=== PATIENT | male | born 1935 | race Caucasian/White ===

== ENCOUNTER 2016-07-20 09:13 | Inpatient (IN) | payer OTHER ==
[~2016-07-20] VITALS: Ht 170.2 cm; Wt 94.8 kg
[~2016-07-20 09:13] MED LIST: ALBU8.5H8 INH; CARV12.548 PO; CLOP75TA2 PO; FLUT1DIS3 INH; GLIP10TA74 PO; LEVO125T8 PO; LIP10 PO; LISI40TA4 PO; METF1000 PO; SPIR25TA4 PO; SPIRIVA IH
--- NOTE | 2016-07-20 09:15 | NUR ---
Placed in room 2 . Placed on monitor technician, blood pressure machine and pulse oximeter. To gown for exam. Side rails up. Report given to Lei GARAY.
--- NOTE | 2016-07-20 09:19 | NUR ---
ER Dr. Austin at bedside examining patient.
[2016-07-20 09:20] VITALS: BP_SYST 153
--- NOTE | 2016-07-20 09:30 | NUR ---
Pt bib family c/o chill and lethargy upon awaking this AM. Pt's family reports sluggish motor skill, however pt was about complete ADL's. Pt h/o DM,HTN,Afib and CVA 2012 and R facial droop w/ mild residual deficits.
[2016-07-20 09:56] LABS: BASOPHILS # (AUTO) 0.1 K/uL (0.0-0.2); BASOPHILS % (AUTO) 0.4 % (0.0-2.0); EOSINOPHILS # (AUTO) 0.1 K/uL (0.0-0.4); EOSINOPHILS % (AUTO) 0.4 % (0.0-4.0); HEMATOCRIT 32.3 % (36-54); HEMOGLOBIN 10.5 g/dL (14.0-18.0); LYMPHOCYTES # (AUTO) 2.1 K/uL (1.0-5.5); LYMPHOCYTES % (AUTO) 12.2 % (20.5-51.5); MEAN CORPUSCULAR HEMOGLOBIN 31 pg (27-31); MEAN CORPUSCULAR HGB CONC 33 % (32-36); MEAN CORPUSCULAR VOLUME 96 fL (79.0-98.0); MONOCYTES # (AUTO) 1.4 K/uL (0.0-1.0); MONOCYTES % (AUTO) 8.2 % (1.7-9.3); NEUTROPHILS # (AUTO) 13.3 K/uL (1.8-7.7); NEUTROPHILS % (AUTO) 78.8 % (40.0-70.0); PLATELET COUNT (AUTO) 205 K/uL (130-430); RED BLOOD CELL COUNT(AUTO) 3.38 MIL/uL (4.2-6.2); RED CELL DISTRIBUTION WIDTH 13.1 % (9.0-15.0)
--- NOTE | 2016-07-20 10:15 | NUR ---
Pt denies pain or discomfort at this time.
[2016-07-20 10:19] LABS: ANION GAP 5 (5-15); CALCIUM 8.6 mg/dL (8.4-11.0); CHLORIDE 98 mmol/L (98-107); CREATININE 1.38 mg/dL (0.55-1.30); GLUCOSE 290 mg/dL (70-99); POTASSIUM 5.4 mmol/L (3.5-5.1); SODIUM SERUM 129 mmol/L (136-145); UREA NITROGEN, BLOOD 33 mg/dL (8-21)
[2016-07-20 10:21] LABS: INR 1.8 (0.80-1.20); PROTHROMBIN TIME 20.2 SECS (9.5-12.5)
[2016-07-20 10:23] LABS: ALANINE AMINOTRANSFERASE 23 U/L (12-78); ALBUMIN 3.5 g/dL (3.4-4.8); ASPARTATE AMINOTRANSFERASE 15 U/L (10-37); CHOLESTEROL 102 mg/dL (<200); HDL CHOLESTEROL 37 mg/dL (>45); LDL CHOLESTEROL 48 mg/dL (<100); TOTAL BILIRUBIN 1.3 mg/dL (0.0-1.0); TOTAL PROTEIN, SERUM 7.1 g/dL (6.4-8.3); TRIGLYCERIDES 96 mg/dL (30-150)
[2016-07-20] MEDS ORDERED: cefTRIAXone 1 GM IVPB PREMIX 50 ML IV ONE (11:30)
--- NOTE | 2016-07-20 11:30 | NUR ---
blood cultures done
[2016-07-20] MEDS ORDERED: GLIP10TA11 PO (11:46)
--- NOTE | 2016-07-20 11:47 | NUR ---
Medication reconciliation completed with information provided by family. Any prior medication reconciliation on file was reviewed and corrected.
[2016-07-20 12:21] LABS: BILIRUBIN,URINE NEGATIVE (NEGATIVE); CLARITY/URINE SL CLOUDY (CLEAR); COLOR,URINE YELLOW (YELLOW); GLUCOSE,URINE 1+ (NEGATIVE); KETONES,URINE NEGATIVE (NEGATIVE); LEUKOCYTE ESTERASE ,URINE 1+ (NEGATIVE); NITRITE, URINE POSITIVE (NEGATIVE); PH,URINE 5.5 (5.0-8.0); PROTEIN URINE NEGATIVE (NEGATIVE); UROBILINOGEN,URINE 0.2 (0.2-1.0)
[2016-07-20 12:25] LABS: BLOOD, URINE TRACE (NEGATIVE)
[2016-07-20 12:29] LABS: BACTERIA,URINE MANY /HPF (None Seen); RBC,URINE 0-3 /HPF (0-3); WBC,URINE 20-50 /HPF (0-3)
--- NOTE | 2016-07-20 12:45 | NUR ---
PT MEDICATED TOLERATED WELL.CONTIUNING TO MONITOR
[2016-07-20] MEDS ORDERED: NACL 0.9% 1,000 ML IV ONE ×2 (14:15→16:15)
--- NOTE | 2016-07-20 14:44 | NUR ---
ADMIT NOTE Received pt from ER to the floor with a diagnosis of sepsis. Admission process initiated. patient oriented to pain management, safety and call light-teach back done.
[2016-07-20 14:46] VITALS: BP_SYST 132
--- NOTE | 2016-07-20 14:50 | NUR ---
Patient will be admitted to care of . Admitted to TELEMETRY unit. Will go to room 135. Belongings list completed. Summary report printed. Report will be given at bedside.
[2016-07-20 15:20] VITALS: BP_SYST 148
--- NOTE | 2016-07-20 15:27 | NUR ---
OPENING NOTE RECEIVED REPORT AT BEDSIDE. 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 VITAL STABLE AT 2L O2 AND PT IS NOT REPORTING PAIN. SKIN ASSESSMENT: NO SACRAL WOUNDS, BUT THERE ARE SEVERAL BRUISES AND SMALL WOUNDS ON HIS LOWER ARMS BILATERALLY WHICH ARE BANDAGED . PT STATED THE WOUNDS ARE DUE TO SMALL SCRATCHES BUT THAT HIS COUMADIN THERAPY CAUSES HIM TO BLEED MORE THAN USUAL. PT EDUCTED CAREER DEVELOPMENT ENGINEER LIGHT AND ORIENTED TO ROOM. BED ALARM SET HE NEEDS ASSISTANCE AMBULATING
--- NOTE | 2016-07-20 17:38 | NUR ---
CONSULTATION CALLED REASON FOR CONSULT:INFECTOUS DISEASE WHO WAS NOTIFIED: ROWDY CHUN DR: [place] EPIC PROFESSIONAL NUMBER: [phone]
[2016-07-20] MEDS: PIPERACILLIN/TAZO 2.25G/DEX-IS 50 ML IV SCH ×2 (18:02→23:52)
--- NOTE | 2016-07-20 19:00 | NUR ---
CLOSING ROUND PT RESTING IN BED, STATED HE IS COMFORTABLE AND PAIN-FREE. PT'S IS AT BEDSIDE. VS STABLE, PT CLEAN, BED ALARM SET AND AT LOWEST POSITION. REPORT ENDORSED AT BEDSIDE
[2016-07-20 20:00] VITALS: BP_SYST 148
--- NOTE | 2016-07-20 20:00 | NUR ---
Initial PM Note Pt was received lying in bed fully awake, alert and oriented x3. No c/o pain or discomfort. Speech is clear and pt is able to make his needs known. Pt's is visiting at the bedside. Skin is warm and dry to touch. No signs or symptoms of hypoglycemia or hyperglycemia noted. panel monitor is showing SR. Fall precautions are in place. Pt was instructed to call for assistance as needed and pt verbalized understanding. Call light is with pt and bed alarm is on. Three side rails are up. Bed is in the lowest and locked positions. IVF is infusing well in LFA. Will continue to monitor pt.
[2016-07-20] MEDS ORDERED: ALBUTEROL SULFATE 0.083% 2.5 MG/3 ML VIAL.NEB INH PRN (20:15)
[2016-07-20 20:43] VITALS: BP_SYST 148
--- NOTE | 2016-07-20 20:45 | NUR ---
Incontinence Care Pt was incontinent of large amount of clear yellowish urine. Incontinence care given and partial linen change done.
[2016-07-20] MEDS: LACTOBACILLUS RHAMNOSUS GG 1 CAP CAPSULE PO SCH (21:15)
[2016-07-20] MEDS: CARVEDILOL 12.5 MG TABLET (COREG) PO SCH (21:16)
[2016-07-20] MEDS: NACL 0.9% 1,000 ML IV SCH (21:19)
[2016-07-20] MEDS: INSULIN REGULAR, HUMAN 100 UNITS/ML, 10 ML VIAL (novoLIN R) SUBCUT PRN (21:57)
--- NOTE | 2016-07-20 22:00 | NUR ---
Blood Sugar Accucheck 353 and Regular Insulin 10 units given SQ per sliding scale orders obtained from Dr. Hayes who was covering for Dr. Ramon. Skin remains warm and dry to touch.
--- NOTE | 2016-07-20 23:30 | NUR ---
Incontinence Care Pt was incontinent of large amount of clear yellowish urine. Incontinence care was given and partial linen change done.
[2016-07-21] VITALS: BP_SYST 132
--- NOTE | 2016-07-21 00:30 | NUR ---
Rounds Pt is sleeping comfortably in bed. IVF is infusing well. Call light is with pt and bed alarm is on. Will continue to monitor pt.
--- NOTE | 2016-07-21 02:00 | NUR ---
Rounds Pt is sleeping comfortably in bed. Call light is with pt and bed alarm is on.
[2016-07-21 04:00] VITALS: BP_SYST 142
--- NOTE | 2016-07-21 04:00 | NUR ---
Rounds Pt is sleeping without any distress noted. IVF is infusing well.
[2016-07-21] MEDS: NACL 0.9% 1,000 ML IV SCH ×3 (04:45→23:36)
--- NOTE | 2016-07-21 05:00 | NUR ---
Incontinence Care Pt was incontinent of large amount of clear yellowish urine. Incontinence care was given and partial linen change done.
[2016-07-21] MEDS: PIPERACILLIN/TAZO 2.25G/DEX-IS 50 ML IV SCH ×4 (06:21→23:36)
--- NOTE | 2016-07-21 06:42 | NUR ---
Closing Note Pt is awake and resting comfortably in bed. No acute distress noted. IVF is infusing well and call light is with pt. All pt's needs were attended to. No fall or injury noted this shift. Accucheck 114 this AM and no Insulin coverage needed. Skin remains warm and dry to touch. Will endorse to day shift nurse.
[2016-07-21] MEDS ORDERED: LEVOTHYROXINE SODIUM 0.125 MG TABLET PO SCH (07:00)
--- NOTE | 2016-07-21 07:30 | NUR ---
AM ROUNDS RECEIVED PT UP IN BED. AWAKE, ALERT, ORIENTED X3. BREATHING IS EVEN AND UNLABORED ON 2L/MIN. NO ACUTE DISTRESS. FULL ASSESSMENT COMPLETED. VSS. RD OF CALL LIGHT NOTED. ENCOURAGED PT TO CALL WITH ANY NEEDS.
--- NOTE | 2016-07-21 07:35 | NUR ---
Pulmo Consult: for Dr. Pace, regarding asbestosis, ordered by Dr. Ramon, spoke with Apryl.
[2016-07-21 08:00] VITALS: BP_SYST 133
[2016-07-21 08:15] LABS: BLOOD GAS PH 7.371 (7.350-7.450)
[2016-07-21 08:16] LABS: ABG TOTAL HEMOGLOBIN 11.3 G/dL (12.0-18.0); BLOOD GAS BASE EXCESS -2.1 mmol/L (-3.0-3.0); BLOOD GAS COHb% 0.9 % (0.5-1.5); BLOOD GAS HHB 9.8 % (0.0-6.0); BLOOD O2Hb% 88.9 % (94.0-97.0)
--- NOTE | 2016-07-21 08:26 | NUR ---
Uro Consult: for Dr. Kumari (Dr. Castellanos is train controller), regarding urinary incontinence, ordered by Dr. Ramon, spoke with Tanya.
[2016-07-21] MEDS: SPIRONOLACTONE 25 MG TABLET (ALDACTONE) PO SCH (09:28)
[2016-07-21] MEDS: CARVEDILOL 12.5 MG TABLET (COREG) PO SCH ×2 (09:28→20:47)
[2016-07-21] MEDS: LACTOBACILLUS RHAMNOSUS GG 1 CAP CAPSULE PO SCH ×2 (09:28→20:47)
[2016-07-21] MEDS: ATORVASTATIN 10 MG TABLET PO SCH (09:29)
[2016-07-21 11:28] VITALS: BP_SYST 135
[2016-07-21] MEDS: INSULIN REGULAR, HUMAN 100 UNITS/ML, 10 ML VIAL (novoLIN R) SUBCUT PRN ×3 (13:01→20:50)
[2016-07-21] MEDS: ALBUTEROL SULFATE 0.083% 2.5 MG/3 ML VIAL.NEB INH SCH ×2 (13:31→19:57)
[2016-07-21] MEDS: IPRATROPIUM BROM 0.5 MG/2.5 ML VIAL.NEB (ATROVENT) INH SCH ×2 (13:32→19:58)
[2016-07-21 15:58] VITALS: BP_SYST 118
--- NOTE | 2016-07-21 18:54 | NUR ---
CLOSING NOTE PT RESTING IN BED. ALL NEEDS MET.
--- NOTE | 2016-07-21 20:16 | NUR ---
OPENING NOTES PATIENT IS A/OX4. NO SIGNS OF DISTRESS. BREATHING IS NON LABORED. VITAL SIGNS ARE STABLE. IV IS PATENT AND SHOWS NO SIGNS OF COMPLICATIONS. O2 IS ON AND FLOWING. SALAS CATHETER IS PATENT. PATIENT INSTRUCTED TO CALL FOR ASSISTANCE. SAFETY MEASURES ARE IN PLACE. WILL CONTINUE TO MONITOR.
[2016-07-21 20:18] VITALS: BP_SYST 142
--- NOTE | 2016-07-21 22:40 | NUR ---
ROUNDS PATIENT IS IN BED RESTING COMFORTABLY. NO SIGNS OF DISTRESS. BREATHING NON LABORED. SAFETY MEASURES ARE IN PLACE. WILL CONTINUE TO MONITOR.
--- NOTE | 2016-07-22 | NUR ---
NEW IV PREVIOUS IV INFILTRATED. NEW IV INSERTED TO THE LEFT FOREARM 22G. PATIENT TOLERATED IT WELL.
[2016-07-22 00:01] VITALS: BP_SYST 134
--- NOTE | 2016-07-22 02:01 | NUR ---
ROUNDS PATIENT IS IN SLEEPING. NO SIGNS OF DISTRESS. BREATHING IS NON LABORED. CALL LIGHT IS WITHIN REACH. SAFETY MEASURES ARE IN PLACE. WILL CONTINUE TO MONITOR.
[2016-07-22] MEDS: ALBUTEROL SULFATE 0.083% 2.5 MG/3 ML VIAL.NEB INH SCH ×2 (02:08→07:00)
[2016-07-22] MEDS: IPRATROPIUM BROM 0.5 MG/2.5 ML VIAL.NEB (ATROVENT) INH SCH ×2 (02:09→07:00)
[2016-07-22 04:06] VITALS: BP_SYST 135
--- NOTE | 2016-07-22 04:42 | NUR ---
ROUNDS PATIENT IS IN BED RESTING COMFORTABLY. NO SIGNS OF DISTRESS. BREATHING IS NON LABORED. SAFETY MEASURES ARE IN PLACE. WILL CONTINUE TO MONITOR. CALL LIGHT IS WITHIN REACH. PATIENT INSTRUCTED TO CALL FOR ASSISTANCE.
[2016-07-22] MEDS: PIPERACILLIN/TAZO 2.25G/DEX-IS 50 ML IV SCH ×2 (05:50→11:41)
--- NOTE | 2016-07-22 06:30 | NUR ---
SPOKE TO DOCTOR RACHANA PATIENT HAS COMPLAINTS BACK. PATIENT STATED THE HE TAKES NORCO AT HOME, BUT DOES NOT KNOW THE DOSE OR STRENGTH. WILL INPUT NEW ORDERS.
[2016-07-22] MEDS: INSULIN REGULAR, HUMAN 100 UNITS/ML, 10 ML VIAL (novoLIN R) SUBCUT PRN ×2 (06:34→11:30)
--- NOTE | 2016-07-22 06:44 | NUR ---
SPOKE WITH PHARMACY SPOKE TO JIMENA IN PHARMACY REGARDING MISWRITTEN ORDER DOSE FOR 0700 LEVOTHYROXINE. JIMENA STATED THAT HE WILL FIX IT. UNABLE TO GIVE MEDICATION UNTIL ORDER IS CORRECTED.
--- NOTE | 2016-07-22 06:49 | NUR ---
CLOSING NOTES PATIENT IS IN BED RESTING. NO SIGNS OF DISTRESS. BREATHING IS NON LABORED. IV AND SALAS CATHETER ARE PATENT. CALL LIGHT IS WITHIN REACH. BED ALARM IS ON. WILL ENDORSE ALL CARE TO THE MORNING NURSE.
[2016-07-22] MEDS ORDERED: HYDROcodone/ACETAMIN 5-325 MG TAB (NORCO/ VICODIN) PO PRN (07:00)
[2016-07-22] MEDS ORDERED: LEVOTHYROXINE SODIUM 0.1 MG TABLET PO SCH (07:00)
--- NOTE | 2016-07-22 07:30 | NUR ---
AM ROUNDS: PATIENT ON THE BED.AWAKE,ALERT AND ORIENTED X3. REPORT GIVEN AT BEDSIDE BY MARGARET WILSON. IVF ON GOING AT LEFT FOREARM INTACT. WITH SALAS IN SITU. NO DISTRESS.
[2016-07-22 07:35] LABS: BASOPHILS % (AUTO) 0.2 % (0.0-2.0); EOSINOPHILS # (AUTO) 0.3 K/uL (0.0-0.4); EOSINOPHILS % (AUTO) 2.9 % (0.0-4.0); HEMATOCRIT 30.7 % (36-54); HEMOGLOBIN 10.2 g/dL (14.0-18.0); LYMPHOCYTES % (AUTO) 16.8 % (20.5-51.5); MEAN CORPUSCULAR HEMOGLOBIN 32 pg (27-31); MEAN CORPUSCULAR HGB CONC 33 % (32-36); MEAN CORPUSCULAR VOLUME 96 fL (79.0-98.0); MONOCYTES # (AUTO) 0.8 K/uL (0.0-1.0); MONOCYTES % (AUTO) 7.2 % (1.7-9.3); NEUTROPHILS # (AUTO) 8.5 K/uL (1.8-7.7); NEUTROPHILS % (AUTO) 72.9 % (40.0-70.0); PLATELET COUNT (AUTO) 194 K/uL (130-430); WHITE BLOOD COUNT (AUTO) 11.6 K/uL (4.8-10.8)
[2016-07-22 07:56] LABS: ALANINE AMINOTRANSFERASE 17 U/L (12-78); ALBUMIN 2.6 g/dL (3.4-4.8); ANION GAP 7 (5-15); ASPARTATE AMINOTRANSFERASE 16 U/L (10-37); CALCIUM 8.3 mg/dL (8.4-11.0); CHLORIDE 104 mmol/L (98-107); CREATININE 1.07 mg/dL (0.55-1.30); GLUCOSE 245 mg/dL (70-99); SODIUM SERUM 136 mmol/L (136-145); TOTAL PROTEIN, SERUM 6.2 g/dL (6.4-8.3); UREA NITROGEN, BLOOD 13 mg/dL (8-21)
[2016-07-22 09:43] VITALS: BP_SYST 135
[2016-07-22] MEDS: LACTOBACILLUS RHAMNOSUS GG 1 CAP CAPSULE PO SCH (09:45)
[2016-07-22] MEDS: ATORVASTATIN 10 MG TABLET PO SCH (09:45)
[2016-07-22] MEDS: CARVEDILOL 12.5 MG TABLET (COREG) PO SCH (09:45)
[2016-07-22] MEDS: SPIRONOLACTONE 25 MG TABLET (ALDACTONE) PO SCH (09:45)
--- NOTE | 2016-07-22 09:56 | NUR ---
meds: due po meds given.tolerated well.
--- NOTE | 2016-07-22 10:25 | NUR ---
md rounds: patient seen by dr lópez and with orders to keep marlow when patient goes home.
--- NOTE | 2016-07-22 11:42 | NUR ---
accucheck notes: blood sugar taken with insulin coverage given per sliding scale.
[2016-07-22] MEDS ORDERED: AMOX-423 PO (11:49)
[2016-07-22] MEDS ORDERED: FINA5TAB11 PO (11:50)
--- NOTE | 2016-07-22 11:58 | NUR ---
pain meds: c/o generalized pain and due po pain meds given per request.
[2016-07-22 12:14] VITALS: BP_SYST 141
[2016-07-22 13:05] VITALS: BP_SYST 141
--- NOTE | 2016-07-22 14:15 | NUR ---
PHYSICAL THERAPY CO-SIGN The Physical Therapy Progress Notes documented by Filter Tank Operator have been reviewed. Reviewed/Co-Signed by: Cuca Lizama, PT Documentation Done by: Ric Chun PTA I concur with the documentation of this WALLPAPER INSTALLER. Plan: continue PT as per plan of care. Addendum: 07/22/16 at 1525 by Cuca Lizama PT Amended: Links added.
--- NOTE | 2016-07-22 15:37 | NUR ---
HCP/PA: Per TALYA Hampton following arrangements have been made: [facility] [phone] PALLIATIVE CARE - [facility] [phone] COMPREHENSIVE CARE PROGRAM - COPD PH [phone]
[2016-07-22] MEDS ORDERED: 0.45% NACL 1,000 ML IV SCH (16:00)
--- NOTE | 2016-07-22 16:00 | NUR ---
rounds: waiting for the pt's ride. no distress.
[2016-07-22 16:56] VITALS: BP_SYST 141
--- NOTE | 2016-07-22 17:00 | NUR ---
dc notes: transitional care document and prescriptions given to patient with at bedside listening to the instructions,pt verbalized understanding. personal belongings send home with the patient. with home health arranged by hcp blayne and info given to pt's and instructed to call pcp for urology appt for marlow status. marlow bag changed to leg bag and extra bag given for home use.iv removed,dry gauze applied,no bleeding noted. pt wheeled out by pulp press tender to the lobby and accompanied home by in stable condition.
[2016-07-23] MEDS ORDERED: FINASTERIDE 5 MG TABLET (PROSCAR) PO SCH (09:00)
== END 2016-07-22 17:00 | disposition home health service (06) | DRG 871 ==
LOC: SED 09:13 → STU 13:53 → SMU 07-21 11:12
PROVIDERS: ADMIT Internal Medicine Hospice and Palliative Medicine
DX: A41.9 Sepsis, unspecified organism (principal); G93.41 Metabolic encephalopathy; E87.1 Hypo-osmolality and hyponatremia; N39.0 Urinary tract infection, site not specified; E11.9 Type 2 diabetes mellitus without complications; I10 Essential (primary) hypertension; J44.9 Chronic obstructive pulmonary disease, unspecified; J61 Pneumoconiosis due to asbestos and other mineral fibers; F03.90 Unspecified dementia, unspecified severity, without behavioral disturbance, psychotic disturbance, mood disturbance, and anxiety; I25.10 Atherosclerotic heart disease of native coronary artery without angina pectoris; B96.20 Unspecified Escherichia coli [E. coli] as the cause of diseases classified elsewhere; I48.2 Chronic atrial fibrillation; N28.9 Disorder of kidney and ureter, unspecified; Z85.038 Personal history of other malignant neoplasm of large intestine; Z86.73 Personal history of transient ischemic attack (TIA), and cerebral infarction without residual deficits; Z87.891 Personal history of nicotine dependence; Z90.49 Acquired absence of other specified parts of digestive tract
CPT/HCPCS: 36415; 36600; 70450-TC; 71010; 76700-TC; 80053; 80061; 81000-TC; 82803-TC; 82962; 83605; 84484; 85025; 85610-TC; 85730-TC; 87040-TC; 87086; 87186-TC; 93005; 94640; 94760; 96365; 97110-GP; 97116-GP; 97530-GP; 99291; J0696; J1815; J2543; J7030

== ENCOUNTER 2017-03-23 16:02 | Emergency (ER) | payer OTHER ==
[~2017-03-23] VITALS: Ht 170.2 cm; Wt 86.2 kg
[~2017-03-23 16:02] MED LIST changes: +AMOX-423 PO; -CLOP75TA2 PO; +FINA5TAB11 PO; -FLUT1DIS3 INH; +GLIP10TA11 PO; -GLIP10TA74 PO; -SPIRIVA IH
--- NOTE | 2017-03-23 16:08 | NUR ---
Patient to ER bed 03 to gown for evaluation. Side rails up.
[2017-03-23 16:10] VITALS: BP_SYST 148
--- NOTE | 2017-03-23 16:10 | NUR ---
ANNA Castillo at bedside examining patient.
--- NOTE | 2017-03-23 16:12 | NUR ---
Pt presents to ER s/p mech fall while walking his dogs. Pt reports hitting his head, R hand, and shoulders. Pt reports pain 8/10 in all areas stated above. Pt reports that he just lost his balance, did not loss consciousness. Pt denies chest pain, N/V/D. Pt reports history of HTN, DM, AND COPD. Pt is in no acute distress at the moment, AOX4, NKDA.
[2017-03-23] MEDS ORDERED: ACETAMINOPHEN 500 MG TABLET PO ONE (16:30)
--- NOTE | 2017-03-23 16:30 | NUR ---
Patient transported to radiology via ambulatory, accompanied by rad staff.
--- NOTE | 2017-03-23 16:58 | NUR ---
Returned from radiology, back to [facility].
[2017-03-23] MEDS ORDERED: ACETAMINOPHEN 500 MG TABLET ONE (17:02)
--- NOTE | 2017-03-23 17:06 | NUR ---
Pt medicated for pain level 8/10 on back, neck, hand. Pt tolerated well, will continue to monitor.
--- NOTE | 2017-03-23 17:45 | NUR ---
Wounds on R hand cleaned up and dermabond applied to R hand. Pt tolerated well. Pt also states that pain level has decreased to 3/10 which is a tolerable level of pain.
--- NOTE | 2017-03-23 18:15 | NUR ---
Pt's R hand wrapped. Pt tolerated well; given home care instructions and pt verbalizes understanding.
[2017-03-23 18:20] VITALS: BP_SYST 148
--- NOTE | 2017-03-23 18:20 | NUR ---
Patient given written and verbal discharge instructions and verbalizes understanding. ER MD discussed with patient the results and treatment provided. Patient in stable condition. ID arm band removed. No Rx given. Patient educated on pain management and to follow up with PMD. Pain Scale 2/10. Opportunity for questions provided and answered.
[2017-04-06] MEDS ORDERED: PRED10TA PO (12:06)
[2017-04-06] MEDS ORDERED: PRED20TA PO (12:06)
[2017-04-06] MEDS ORDERED: LEVO500T20 PO (12:07)
[2017-04-06] MEDS ORDERED: ALBU2.5V7 INH (12:13)
== END 2017-03-23 18:20 | disposition home or self-care (01) ==
LOC: SED 16:02
DX: S61.411A Laceration without foreign body of right hand, initial encounter (principal); S63.91XA Sprain of unspecified part of right wrist and hand, initial encounter; S09.90XA Unspecified injury of head, initial encounter; E11.9 Type 2 diabetes mellitus without complications; I10 Essential (primary) hypertension; E78.00 Pure hypercholesterolemia, unspecified; J45.909 Unspecified asthma, uncomplicated; Z79.899 Other long term (current) drug therapy; W01.10XA Fall on same level from slipping, tripping and stumbling with subsequent striking against unspecified object, initial encounter; Y93.01 Activity, walking, marching and hiking; Y92.89 Other specified places as the place of occurrence of the external cause; Y99.8 Other external cause status
CPT/HCPCS: 70450-TC; 73090; 99284

== ENCOUNTER 2018-01-11 15:13 | Inpatient (IN) | payer OTHER ==
[~2018-01-11] VITALS: Ht 170.2 cm; Wt 91.6 kg
[~2018-01-11 15:13] MED LIST changes: +ALBU2.5V7 INH; -AMOX-423 PO; +LEVO500T20 PO; +PRED10TA PO; +PRED20TA PO; -SPIR25TA4 PO; +SPIR25TA6 PO
[2018-01-11 15:20] VITALS: BP_SYST 151
[2018-01-11] MEDS ORDERED: NACL 0.9% 1,000 ML IV ONE (15:30)
[2018-01-11] MEDS ORDERED: PIPERACILLIN/TAZO 3.375 GM in NS 50 ML IV ONE (16:00)
[2018-01-11] MEDS ORDERED: VANCOMYCIN HCL 1,000 MG in D5W 250 ML IV ONE (16:00)
[2018-01-11] MEDS ORDERED: ACETAMINOPHEN 325 MG TABLET PO ONE (16:00)
[2018-01-11] MEDS ORDERED: VANCOMYCIN HCL 1000 MG/VIAL IV ONE (16:07)
[2018-01-11] MEDS ORDERED: PIPERACILLIN/TAZOBACTAM 3.375 GM/VIAL (ZOSYN) IV ONE (16:07)
[2018-01-11 16:32] LABS: BASOPHILS % (AUTO) 0.2 % (0.0-2.0); EOSINOPHILS % (AUTO) 0.1 % (0.0-4.0); HEMATOCRIT 34.7 % (36-54); HEMOGLOBIN 11.3 g/dL (14.0-18.0); LYMPHOCYTES # (AUTO) 0.8 K/uL (1.0-5.5); LYMPHOCYTES % (AUTO) 8.4 % (20.5-51.5); MEAN CORPUSCULAR HEMOGLOBIN 31 pg (27-31); MEAN CORPUSCULAR HGB CONC 33 % (32-36); MEAN CORPUSCULAR VOLUME 95 fL (79.0-98.0); MONOCYTES # (AUTO) 0.4 K/uL (0.0-1.0); MONOCYTES % (AUTO) 4.1 % (1.7-9.3); NEUTROPHILS # (AUTO) 8.2 K/uL (1.8-7.7); NEUTROPHILS % (AUTO) 87.2 % (40.0-70.0); PLATELET COUNT (AUTO) 270 K/uL (130-430); RED BLOOD CELL COUNT(AUTO) 3.64 MIL/uL (4.2-6.2); RED CELL DISTRIBUTION WIDTH 14.2 % (9.0-15.0); WHITE BLOOD COUNT (AUTO) 9.4 K/uL (4.8-10.8)
[2018-01-11 16:44] LABS: ANION GAP 10 (5-15); CALCIUM 9.2 mg/dL (8.4-11.0); CHLORIDE 101 mmol/L (98-107); CREATININE 1.62 mg/dL (0.55-1.30); GLUCOSE 335 mg/dL (70-99); POTASSIUM 4.6 mmol/L (3.5-5.1); SODIUM SERUM 137 mmol/L (136-145); UREA NITROGEN, BLOOD 44 mg/dL (8-21)
[2018-01-11 16:50] LABS: INR 2.2 (0.80-1.20); PROTHROMBIN TIME 22.4 SECS (9.5-12.5)
[2018-01-11 16:52] LABS: ALANINE AMINOTRANSFERASE 27 U/L (12-78); ALBUMIN 3.3 g/dL (3.4-4.8); ASPARTATE AMINOTRANSFERASE 17 U/L (10-37)
[2018-01-11] MEDS ORDERED: ASPI-1153 PO (18:01)
[2018-01-11] MEDS ORDERED: WARF5TAB2 PO (18:01)
[2018-01-11] MEDS ORDERED: HYDR-551 PO (18:01)
[2018-01-11] MEDS ORDERED: PRO40 PO (18:01)
[2018-01-11 18:45] VITALS: BP_SYST 120
[2018-01-11 19:00] VITALS: BP_SYST 126
[2018-01-11 23:31] VITALS: BP_SYST 120
[2018-01-11 23:58] VITALS: BP_SYST 120
[2018-01-12 00:28] VITALS: BP_SYST 114
[2018-01-12] MEDS ORDERED: ALBUTEROL SULFATE 0.083% 2.5 MG/3 ML VIAL.NEB INH PRN ×2 (00:30)
[2018-01-12] MEDS ORDERED: ONDANSETRON HCL 4 MG/2 ML VIAL IVP PRN (00:30)
[2018-01-12] MEDS ORDERED: PIPERACILLIN/TAZO 3.375/DEX-IS 50 ML IV SCH (01:00)
[2018-01-12] MEDS ORDERED: PIPERACILLIN/TAZOBACTAM 3.375 GM/VIAL (ZOSYN) IV ONE (01:46)
[2018-01-12] MEDS: PIPERACILLIN/TAZO 3.375/DEX-IS 50 ML IV SCH ×5 (01:54→23:47)
[2018-01-12] MEDS ORDERED: GLUCOSE 15 GM GEL (in 37.5 GM TUBE) PO PRN (02:00)
[2018-01-12] MEDS ORDERED: DEXTROSE 50% JECT 50 ML DISP.SYRIN IVP PRN (02:00)
[2018-01-12 02:32] LABS: BILIRUBIN,URINE NEGATIVE (NEGATIVE); BLOOD, URINE 2+ (NEGATIVE); CLARITY/URINE HAZY (CLEAR); COLOR,URINE YELLOW (YELLOW); GLUCOSE,URINE 3+ (NEGATIVE); KETONES,URINE NEGATIVE (NEGATIVE); LEUKOCYTE ESTERASE ,URINE 2+ (NEGATIVE); NITRITE, URINE POSITIVE (NEGATIVE); PH,URINE 5.5 (5.0-8.0); PROTEIN URINE 1+ (NEGATIVE); UROBILINOGEN,URINE 0.2 (0.2-1.0)
[2018-01-12 03:03] LABS: BACTERIA,URINE MODERATE /HPF (None Seen); RBC,URINE 20-50 /HPF (0-3); WBC,URINE 50-80 /HPF (0-3)
[2018-01-12] MEDS ORDERED: ALBUTEROL MDI INHALATION 8 GM INH INH PRN ×2 (03:30)
[2018-01-12 04:24] LABS: ANION GAP 7 (5-15); CALCIUM 8.3 mg/dL (8.4-11.0); CHLORIDE 105 mmol/L (98-107); CREATININE 1.44 mg/dL (0.55-1.30); GLUCOSE 287 mg/dL (70-99); POTASSIUM 4.7 mmol/L (3.5-5.1); SODIUM SERUM 141 mmol/L (136-145); UREA NITROGEN, BLOOD 35 mg/dL (8-21)
[2018-01-12 04:28] LABS: BASOPHILS # (AUTO) 0.1 K/uL (0.0-0.2); BASOPHILS % (AUTO) 0.8 % (0.0-2.0); EOSINOPHILS # (AUTO) 0.1 K/uL (0.0-0.4); EOSINOPHILS % (AUTO) 0.4 % (0.0-4.0); HEMATOCRIT 31.8 % (36-54); HEMOGLOBIN 10.5 g/dL (14.0-18.0); LYMPHOCYTES # (AUTO) 2.8 K/uL (1.0-5.5); LYMPHOCYTES % (AUTO) 18.6 % (20.5-51.5); MEAN CORPUSCULAR HEMOGLOBIN 32 pg (27-31); MEAN CORPUSCULAR HGB CONC 33 % (32-36); MEAN CORPUSCULAR VOLUME 95 fL (79.0-98.0); MONOCYTES % (AUTO) 6.8 % (1.7-9.3); NEUTROPHILS # (AUTO) 11.3 K/uL (1.8-7.7); NEUTROPHILS % (AUTO) 73.4 % (40.0-70.0); PLATELET COUNT (AUTO) 250 K/uL (130-430); RED BLOOD CELL COUNT(AUTO) 3.33 MIL/uL (4.2-6.2)
[2018-01-12 04:31] LABS: WHITE BLOOD COUNT (AUTO) 15.3 K/uL (4.8-10.8)
[2018-01-12 04:33] LABS: ALANINE AMINOTRANSFERASE 22 U/L (12-78); ALBUMIN 2.5 g/dL (3.4-4.8); ASPARTATE AMINOTRANSFERASE 26 U/L (10-37); TOTAL BILIRUBIN 0.9 mg/dL (0.0-1.0)
[2018-01-12] MEDS: LEVOTHYROXINE SODIUM 0.1 MG TABLET PO SCH (06:37)
[2018-01-12] MEDS: NORMAL SALINE 5 ML DISP.SYRIN IVF SCH ×3 (06:40→23:49)
[2018-01-12] MEDS: INSULIN ASPART 100 UNITS/ML, 10 ML VIAL (NovoLOG) SUBCUT PRN ×4 (06:42→20:28)
[2018-01-12 08:13] VITALS: BP_SYST 124
[2018-01-12] MEDS: ATORVASTATIN 10 MG TABLET PO SCH (08:41)
[2018-01-12] MEDS: CARVEDILOL 12.5 MG TABLET (COREG) PO SCH ×2 (08:42→20:25)
[2018-01-12] MEDS: ASPIRIN 81 MG TABLET(ECOTRIN) PO SCH (08:42)
[2018-01-12] MEDS: SPIRONOLACTONE 25 MG TABLET (ALDACTONE) PO SCH (08:44)
[2018-01-12] MEDS: PANTOPRAZOLE SODIUM 40 MG TAB PO SCH (08:45)
[2018-01-12] MEDS: LISINOPRIL 20 MG TABLET PO SCH (08:45)
[2018-01-12] MEDS: FINASTERIDE 5 MG TABLET (PROSCAR) PO SCH (08:45)
[2018-01-12] MEDS ORDERED: PREDNISONE 10 MG TABLET PO SCH (09:00)
[2018-01-12] MEDS ORDERED: PREDNISONE 20 MG TABLET PO SCH (09:00)
[2018-01-12] MEDS: LEVOFLOXACIN 500 MG/D5W 100 ML IV SCH (10:22)
[2018-01-12] MEDS: ACETAMINOPHEN 325 MG TABLET PO PRN ×2 (10:24→20:24)
[2018-01-12 12:52] VITALS: BP_SYST 143
[2018-01-12 16:58] VITALS: BP_SYST 125
[2018-01-12] MEDS: WARFARIN SODIUM 5 MG TABLET PO SCH (17:17)
[2018-01-12 20:00] VITALS: BP_SYST 136
[2018-01-13] VITALS: BP_SYST 136
[2018-01-13] MEDS: ACETAMINOPHEN 325 MG TABLET PO PRN ×2 (03:33→20:19)
[2018-01-13] MEDS: PIPERACILLIN/TAZO 3.375/DEX-IS 50 ML IV SCH ×4 (06:24→23:34)
[2018-01-13] MEDS: LEVOTHYROXINE SODIUM 0.1 MG TABLET PO SCH (06:28)
[2018-01-13] MEDS: NORMAL SALINE 5 ML DISP.SYRIN IVF SCH ×3 (06:28→20:23)
[2018-01-13] MEDS: INSULIN ASPART 100 UNITS/ML, 10 ML VIAL (NovoLOG) SUBCUT PRN ×4 (06:34→20:26)
[2018-01-13 07:22] VITALS: BP_SYST 124
[2018-01-13 09:17] LABS: INR 2.1 (0.80-1.20); PROTHROMBIN TIME 21.1 SECS (9.5-12.5)
[2018-01-13] MEDS: ASPIRIN 81 MG TABLET(ECOTRIN) PO SCH (09:34)
[2018-01-13] MEDS: PANTOPRAZOLE SODIUM 40 MG TAB PO SCH (09:35)
[2018-01-13] MEDS: FINASTERIDE 5 MG TABLET (PROSCAR) PO SCH (09:35)
[2018-01-13] MEDS: ATORVASTATIN 10 MG TABLET PO SCH (09:35)
[2018-01-13] MEDS: LISINOPRIL 20 MG TABLET PO SCH (09:36)
[2018-01-13] MEDS: SPIRONOLACTONE 25 MG TABLET (ALDACTONE) PO SCH (09:36)
[2018-01-13] MEDS: CARVEDILOL 12.5 MG TABLET (COREG) PO SCH ×2 (09:38→20:18)
[2018-01-13] MEDS: LEVOFLOXACIN 500 MG/D5W 100 ML IV SCH (09:38)
[2018-01-13 12:21] VITALS: BP_SYST 129
[2018-01-13 12:22] VITALS: BP_SYST 147
[2018-01-13 16:02] VITALS: BP_SYST 144
[2018-01-13] MEDS: WARFARIN SODIUM 5 MG TABLET PO SCH (17:23)
[2018-01-13 20:00] VITALS: BP_SYST 128
[2018-01-14 00:02] VITALS: BP_SYST 131
[2018-01-14] MEDS: PIPERACILLIN/TAZO 3.375/DEX-IS 50 ML IV SCH ×3 (05:42→18:27)
[2018-01-14] MEDS: NORMAL SALINE 5 ML DISP.SYRIN IVF SCH ×3 (05:42→21:04)
[2018-01-14] MEDS: INSULIN ASPART 100 UNITS/ML, 10 ML VIAL (NovoLOG) SUBCUT PRN ×4 (06:11→21:01)
[2018-01-14] MEDS: LEVOTHYROXINE SODIUM 0.1 MG TABLET PO SCH (06:12)
[2018-01-14 08:28] LABS: BASOPHILS # (AUTO) 0.1 K/uL (0.0-0.2); BASOPHILS % (AUTO) 0.7 % (0.0-2.0); EOSINOPHILS # (AUTO) 0.3 K/uL (0.0-0.4); EOSINOPHILS % (AUTO) 3.3 % (0.0-4.0); HEMATOCRIT 31.2 % (36-54); HEMOGLOBIN 10.2 g/dL (14.0-18.0); LYMPHOCYTES # (AUTO) 1.8 K/uL (1.0-5.5); LYMPHOCYTES % (AUTO) 19.5 % (20.5-51.5); MEAN CORPUSCULAR HEMOGLOBIN 31 pg (27-31); MEAN CORPUSCULAR HGB CONC 33 % (32-36); MEAN CORPUSCULAR VOLUME 94 fL (79.0-98.0); MONOCYTES # (AUTO) 0.8 K/uL (0.0-1.0); MONOCYTES % (AUTO) 8.9 % (1.7-9.3); NEUTROPHILS # (AUTO) 6.1 K/uL (1.8-7.7); NEUTROPHILS % (AUTO) 67.6 % (40.0-70.0); PLATELET COUNT (AUTO) 274 K/uL (130-430); RED BLOOD CELL COUNT(AUTO) 3.31 MIL/uL (4.2-6.2); RED CELL DISTRIBUTION WIDTH 13.8 % (9.0-15.0); WHITE BLOOD COUNT (AUTO) 9.1 K/uL (4.8-10.8)
[2018-01-14 08:42] LABS: ANION GAP 7 (5-15); CALCIUM 8.8 mg/dL (8.4-11.0); CHLORIDE 102 mmol/L (98-107); CREATININE 1.07 mg/dL (0.55-1.30); GLUCOSE 231 mg/dL (70-99); POTASSIUM 4.5 mmol/L (3.5-5.1); SODIUM SERUM 137 mmol/L (136-145); UREA NITROGEN, BLOOD 19 mg/dL (8-21)
[2018-01-14 08:43] LABS: INR 2.1 (0.80-1.20)
[2018-01-14] MEDS: ATORVASTATIN 10 MG TABLET PO SCH (09:31)
[2018-01-14] MEDS: PANTOPRAZOLE SODIUM 40 MG TAB PO SCH (09:31)
[2018-01-14] MEDS: FINASTERIDE 5 MG TABLET (PROSCAR) PO SCH (09:31)
[2018-01-14] MEDS: ASPIRIN 81 MG TABLET(ECOTRIN) PO SCH (09:31)
[2018-01-14] MEDS: SPIRONOLACTONE 25 MG TABLET (ALDACTONE) PO SCH (09:32)
[2018-01-14] MEDS: LISINOPRIL 20 MG TABLET PO SCH (09:33)
[2018-01-14] MEDS: CARVEDILOL 12.5 MG TABLET (COREG) PO SCH ×2 (09:40→20:56)
[2018-01-14] MEDS: LEVOFLOXACIN 500 MG/D5W 100 ML IV SCH (09:42)
[2018-01-14 09:56] VITALS: BP_SYST 135
[2018-01-14 12:17] VITALS: BP_SYST 141
[2018-01-14 16:53] VITALS: BP_SYST 151
[2018-01-14] MEDS: WARFARIN SODIUM 5 MG TABLET PO SCH (18:29)
[2018-01-14 19:08] VITALS: BP_SYST 126
[2018-01-14 23:28] VITALS: BP_SYST 128
[2018-01-15] MEDS: PIPERACILLIN/TAZO 3.375/DEX-IS 50 ML IV SCH ×3 (00:49→11:45)
[2018-01-15] MEDS: ACETAMINOPHEN 325 MG TABLET PO PRN (01:16)
[2018-01-15 06:03] LABS: INR 2.2 (0.80-1.20); PROTHROMBIN TIME 22.1 SECS (9.5-12.5)
[2018-01-15] MEDS: NORMAL SALINE 5 ML DISP.SYRIN IVF SCH (06:08)
[2018-01-15] MEDS: INSULIN ASPART 100 UNITS/ML, 10 ML VIAL (NovoLOG) SUBCUT PRN ×2 (06:13→11:42)
[2018-01-15 07:30] VITALS: BP_SYST 121
[2018-01-15] MEDS: FINASTERIDE 5 MG TABLET (PROSCAR) PO SCH (08:10)
[2018-01-15] MEDS: PANTOPRAZOLE SODIUM 40 MG TAB PO SCH (08:10)
[2018-01-15] MEDS: ASPIRIN 81 MG TABLET(ECOTRIN) PO SCH (08:10)
[2018-01-15] MEDS: LEVOTHYROXINE SODIUM 0.1 MG TABLET PO SCH (08:10)
[2018-01-15] MEDS: ATORVASTATIN 10 MG TABLET PO SCH (08:10)
[2018-01-15] MEDS: LISINOPRIL 20 MG TABLET PO SCH (08:11)
[2018-01-15] MEDS: SPIRONOLACTONE 25 MG TABLET (ALDACTONE) PO SCH (08:12)
[2018-01-15] MEDS: CARVEDILOL 12.5 MG TABLET (COREG) PO SCH (08:12)
[2018-01-15] MEDS: LEVOFLOXACIN 500 MG/D5W 100 ML IV SCH (08:13)
[2018-01-15 11:30] VITALS: BP_SYST 108
[2018-01-15 13:22] VITALS: BP_SYST 108
[2018-01-15] MEDS ORDERED: metFORMIN HCL 500 MG TABLET PO SCH (18:00)
[2018-01-16] MEDS ORDERED: LEVOFLOXACIN 500 MG TABLET PO SCH (09:00)
== END 2018-01-15 14:00 | disposition home health service (06) | DRG 871 ==
LOC: SED 15:13 → STU 17:41 → SMU 01-15 10:56
PROVIDERS: ADMIT Internal Medicine; ATTEND Internal Medicine
DX: A41.51 Sepsis due to Escherichia coli [E. coli] (principal); J18.9 Pneumonia, unspecified organism; I21.A1 Myocardial infarction type 2; N39.0 Urinary tract infection, site not specified; J44.0 Chronic obstructive pulmonary disease with (acute) lower respiratory infection; J44.1 Chronic obstructive pulmonary disease with (acute) exacerbation; I48.92 Unspecified atrial flutter; B96.20 Unspecified Escherichia coli [E. coli] as the cause of diseases classified elsewhere; E03.9 Hypothyroidism, unspecified; E11.22 Type 2 diabetes mellitus with diabetic chronic kidney disease; E78.5 Hyperlipidemia, unspecified; I12.9 Hypertensive chronic kidney disease with stage 1 through stage 4 chronic kidney disease, or unspecified chronic kidney disease; N18.9 Chronic kidney disease, unspecified; I25.10 Atherosclerotic heart disease of native coronary artery without angina pectoris; I48.0 Paroxysmal atrial fibrillation; E78.00 Pure hypercholesterolemia, unspecified; I48.2 Chronic atrial fibrillation; J61 Pneumoconiosis due to asbestos and other mineral fibers; Z79.01 Long term (current) use of anticoagulants; Z91.81 History of falling; Z82.49 Family history of ischemic heart disease and other diseases of the circulatory system; Z83.3 Family history of diabetes mellitus; Z85.038 Personal history of other malignant neoplasm of large intestine; Z86.73 Personal history of transient ischemic attack (TIA), and cerebral infarction without residual deficits; Z99.81 Dependence on supplemental oxygen; Z79.899 Other long term (current) drug therapy; Z79.82 Long term (current) use of aspirin
CPT/HCPCS: 36415; 70450-TC; 71045; 71250-TC; 80048; 80053; 81000-TC; 82962; 83605; 84484; 85025; 85610-TC; 85730-TC; 87040-TC; 87086; 87186-TC; 93005; 93306; 96365; 99285; J1815; J1956; J2405; J2543; J3370; J7030; J7060

== ENCOUNTER 2018-11-02 17:27 | Inpatient (IN) | payer OTHER ==
[~2018-11-02] VITALS: Ht 170.2 cm; Wt 94.8 kg
[2018-11-02 17:27] VITALS: BP_SYST 132
[~2018-11-02 17:27] MED LIST changes: +ASPI-1153 PO; +HYDR-4273 PO; +PRO40 PO; +WARF5TAB2 PO
--- NOTE | 2018-11-02 17:27 | NUR ---
BROUGHT IN BY [facility] AND PLACED IN BED #7, TRIAGED AND REPORT GIVEN TO SUSIE
--- NOTE | 2018-11-02 17:28 | NUR ---
Pt brought by ambulance , BLS, A&Ox4, pt presents to ER with weakness for one week, denies pain, denies SOB , O2 84 % MD notified,abdominal distention noted, skin pink and warm, cap refill <3, , pt respriations are even and unlabored.
--- NOTE | 2018-11-02 17:38 | NUR ---
Dr Mccabe at bedside examining patient
[2018-11-02 18:11] LABS: BASOPHILS % (AUTO) 0.2 % (0.0-2.0); EOSINOPHILS # (AUTO) 0.2 K/uL (0.0-0.4); EOSINOPHILS % (AUTO) 1.5 % (0.0-4.0); HEMATOCRIT 31.3 % (36-54); HEMOGLOBIN 10.1 g/dL (14.0-18.0); LYMPHOCYTES # (AUTO) 1.6 K/uL (1.0-5.5); MEAN CORPUSCULAR HEMOGLOBIN 30 pg (27-31); MEAN CORPUSCULAR HGB CONC 32 % (32-36); MEAN CORPUSCULAR VOLUME 92 fL (79.0-98.0); MONOCYTES # (AUTO) 0.4 K/uL (0.0-1.0); MONOCYTES % (AUTO) 3.1 % (1.7-9.3); NEUTROPHILS # (AUTO) 10.9 K/uL (1.8-7.7); NEUTROPHILS % (AUTO) 83.2 % (40.0-70.0); PLATELET COUNT (AUTO) 230 K/uL (130-430); RED BLOOD CELL COUNT(AUTO) 3.39 MIL/uL (4.2-6.2); WHITE BLOOD COUNT (AUTO) 13.1 K/uL (4.8-10.8)
[2018-11-02] MEDS ORDERED: IPRATROPIUM/ALBUTEROL SULFATE 3 ML AMPUL.NEB (DUONEB) ONE (18:15)
[2018-11-02 18:17] LABS: ANION GAP 8 (5-15); CALCIUM 8.4 mg/dL (8.4-11.0); CHLORIDE 102 mmol/L (98-107); CREATININE 1.15 mg/dL (0.55-1.30); GLUCOSE 166 mg/dL (70-99); SODIUM SERUM 139 mmol/L (136-145); UREA NITROGEN, BLOOD 30 mg/dL (8-21)
[2018-11-02 18:21] LABS: ALANINE AMINOTRANSFERASE 10 U/L (12-78); ALBUMIN 2.9 g/dL (3.4-4.8); ASPARTATE AMINOTRANSFERASE 18 U/L (10-37); TOTAL BILIRUBIN 0.7 mg/dL (0.0-1.0)
[2018-11-02 18:26] LABS: INR 2.3 (0.80-1.20); PROTHROMBIN TIME 22.8 SECS (9.5-12.5)
[2018-11-02] MEDS ORDERED: FURO-149 PO (18:31)
--- NOTE | 2018-11-02 18:31 | NUR ---
Medication reconciliation completed with information provided by FAMILY. Any prior medication reconciliation on file was reviewed and corrected.
[2018-11-02 19:05] LABS: BILIRUBIN,URINE NEGATIVE (NEGATIVE); BLOOD, URINE NEGATIVE (NEGATIVE); CLARITY/URINE CLEAR (CLEAR); COLOR,URINE YELLOW (YELLOW); GLUCOSE,URINE NEGATIVE (NEGATIVE); KETONES,URINE NEGATIVE (NEGATIVE); LEUKOCYTE ESTERASE ,URINE NEGATIVE (NEGATIVE); NITRITE, URINE NEGATIVE (NEGATIVE); PROTEIN URINE 1+ (NEGATIVE); UROBILINOGEN,URINE 0.2 (0.2-1.0)
[2018-11-02 19:13] LABS: BACTERIA,URINE FEW /HPF (None Seen); RBC,URINE 0-3 /HPF (0-3); WBC,URINE 0-3 /HPF (0-3)
[2018-11-02 19:14] LABS: MUCUS,URINE None Seen /LPF (None Seen)
[2018-11-02] MEDS ORDERED: cefTRIAXone 1 GM IVPB PREMIX 50 ML IV ONE (19:15)
--- NOTE | 2018-11-02 19:18 | NUR ---
Dr Mccabe at bedside exaplaining results to family and patient.
--- NOTE | 2018-11-02 19:40 | NUR ---
's phone number: [phone].
--- NOTE | 2018-11-02 20:13 | NUR ---
Second lactic acid pending at this time, pt being tranfer to Tele.
--- NOTE | 2018-11-02 20:23 | NUR ---
ADMISSION NOTE Received patient from ER via guriwona, received report from RN. Patient admitted with diagnosis of Pna. Patient oriented to hospital routine, call light, toileting and safety-patient verbalized understanding.
[2018-11-02 20:26] VITALS: BP_SYST 139
--- NOTE | 2018-11-02 20:35 | NUR ---
Patient will be admitted to care of Dr Iraheta Admitted to Tele unit. Will go to room 117B. Belongings list completed. Summary report printed. Report will be given at bedside.
--- NOTE | 2018-11-02 20:50 | NUR ---
ADMISSION REPORT RECEIVED FROM CAITLIN SCHULTZ AT THIS TIME. PT RECEIVED IN BED WITH EYES CLOSED, RESPONDING TO VERBAL STIMULATION. VSS, NO S/S OF ACUTE DISTRESS NOTED. PT ON 2L NC. SR ON MONITOR. RFA 22G TO SL, PATENT AND INTACT. PT DENIES ANY PAIN OR DISCOMFORT AT THIS TIME. HOB ELEVATED, BED IN LOWEST POSITION, CALL LIGHT IN REACH. WILL CONTINUE TO MONITOR PT.
[2018-11-02 21:00] VITALS: BP_SYST 139
[2018-11-02] MEDS ORDERED: ALBUTEROL SULFATE 0.083% 2.5 MG/3 ML VIAL.NEB INH PRN ×2 (23:15)
[2018-11-02] MEDS ORDERED: ALBUTEROL MDI INHALATION 8 GM INH INH PRN (23:15)
[2018-11-02] MEDS ORDERED: MORPHINE 2 MG/ML INJ. SYRINGE IVP PRN (23:15)
[2018-11-02] MEDS ORDERED: MORPHINE 4 MG/ML INJ. SYRINGE IVP PRN (23:15)
[2018-11-02] MEDS ORDERED: INSULIN ASPART 100 UNITS/ML, 10 ML VIAL (NovoLOG) SUBCUT PRN (23:30)
[2018-11-02] MEDS ORDERED: AZITHROMYCIN 500 MG in NS 250 ML IV ONE (23:30)
[2018-11-02] MEDS ORDERED: DEXTROSE 50% JECT 50 ML DISP.SYRIN IVP PRN (23:45)
[2018-11-03] VITALS (7 sets, daily range): BP systolic 115–142
[2018-11-03] MEDS ORDERED: AZITHROMYCIN 500 MG/VIAL (ZITHROMAX) IV ONE (00:59)
--- NOTE | 2018-11-03 01:15 | NUR ---
NEW ORDERS ORDERS RECEIVED FOR IV ABX AT THIS TIME. WILL CARRY OUT ORDERED. PT FELL ASLEEP WITH URINAL IN PLACE. URINAL EMPTIED. PT STATES "IM FEELING OKAY, IM JUST TIRED". NO S/S OF ACUTE DISTRESS NOTED. WILL CONTINUE TO MONITOR PT.
--- NOTE | 2018-11-03 03:59 | NUR ---
RN ROUNDS PT RESTING COMFORTABLY IN BED WITH EYES CLOSED. BREATHING IS EVEN AND UNLABORED ON 2L NC. NO S/S OF ACUTE DISTRESS NOTED. WILL CONTINUE TO MONITOR PT.
[2018-11-03] MEDS: PANTOPRAZOLE SODIUM 40 MG TAB PO SCH (06:05)
[2018-11-03] MEDS: LEVOTHYROXINE SODIUM 0.1 MG TABLET PO SCH (06:05)
[2018-11-03 06:10] LABS: BASOPHILS % (AUTO) 0.2 % (0.0-2.0); EOSINOPHILS # (AUTO) 0.3 K/uL (0.0-0.4); EOSINOPHILS % (AUTO) 3.3 % (0.0-4.0); HEMATOCRIT 30.3 % (36-54); HEMOGLOBIN 9.9 g/dL (14.0-18.0); LYMPHOCYTES # (AUTO) 2.1 K/uL (1.0-5.5); LYMPHOCYTES % (AUTO) 21.3 % (20.5-51.5); MEAN CORPUSCULAR HEMOGLOBIN 30 pg (27-31); MEAN CORPUSCULAR HGB CONC 33 % (32-36); MEAN CORPUSCULAR VOLUME 93 fL (79.0-98.0); MONOCYTES # (AUTO) 0.5 K/uL (0.0-1.0); MONOCYTES % (AUTO) 4.6 % (1.7-9.3); NEUTROPHILS % (AUTO) 70.6 % (40.0-70.0); PLATELET COUNT (AUTO) 211 K/uL (130-430); RED BLOOD CELL COUNT(AUTO) 3.28 MIL/uL (4.2-6.2); RED CELL DISTRIBUTION WIDTH 16.1 % (9.0-15.0); WHITE BLOOD COUNT (AUTO) 9.9 K/uL (4.8-10.8)
[2018-11-03 06:27] LABS: ALANINE AMINOTRANSFERASE 9 U/L (12-78); ALBUMIN 2.6 g/dL (3.4-4.8); ANION GAP 6 (5-15); ASPARTATE AMINOTRANSFERASE 18 U/L (10-37); CALCIUM 8.1 mg/dL (8.4-11.0); CHLORIDE 106 mmol/L (98-107); CREATININE 0.99 mg/dL (0.55-1.30); GLUCOSE 136 mg/dL (70-99); POTASSIUM 3.9 mmol/L (3.5-5.1); SODIUM SERUM 143 mmol/L (136-145); TOTAL BILIRUBIN 0.5 mg/dL (0.0-1.0); UREA NITROGEN, BLOOD 24 mg/dL (8-21)
--- NOTE | 2018-11-03 07:29 | NUR ---
ENDORSEMENT BEDSIDE REPORT GIVEN TO YONATHAN RN USING SBAR APPROACH. ALL NEEDS MET, NO S/S OF ACUTE DISTRESS NOTED.
--- NOTE | 2018-11-03 07:30 | NUR ---
OPening notes, received pt in bed, pt is aaox4, denies pain, no sob, no resp distress. no fever. ambulated patient with assist to bathroom and back to bed. pt tolerated well and sat on the eob for breakfast. safety precaution in place. call light in reach. bed in low position. encouraged pt to call for assist and any concerns and told pt not to stand without any nurse with him to prevent fall. will cont to monitor.
[2018-11-03] MEDS: ATORVASTATIN 10 MG TABLET PO SCH (08:05)
[2018-11-03] MEDS: CARVEDILOL 12.5 MG TABLET (COREG) PO SCH ×2 (08:06→17:24)
[2018-11-03] MEDS: FUROSEMIDE 40 MG TABLET PO SCH (08:06)
[2018-11-03] MEDS: LISINOPRIL 20 MG TABLET PO SCH (08:07)
--- NOTE | 2018-11-03 10:00 | NUR ---
pt in bed, no c/o pain, no sob. on stable condition. call light in reach.
--- NOTE | 2018-11-03 10:12 | NUR ---
CONSULTATION PAGED/CALLED Reason for Consultation: [] COPD Person Who was Notified: [] DIRK Consulting Physician: [] DR Angélica BALDWIN Studio Operations Engineer In Charge Specialty: [] DITCHING MACHINE OPERATING ENGINEER Ordering Physician: [] DR RICKS
[2018-11-03 11:16] LABS: INR 2.6 (0.80-1.20); PROTHROMBIN TIME 25.1 SECS (9.5-12.5)
[2018-11-03] MEDS: INSULIN LISPRO SLIDING SCALE 100 UNITS/ML VIAL (humaLOG) SUBCUT PRN ×3 (11:34→21:25)
--- NOTE | 2018-11-03 11:34 | NUR ---
pt given 4 units of humalog insulin for blood sugar of 220. pt assisted to the bath room to void. no sob. pt tolerated well. call light in reach.
--- NOTE | 2018-11-03 13:18 | NUR ---
Dietitian Recommendations *Recommend continuing [facility] Cardiac diet per MD Please see Nutritional Assessment for details. THANG, LATRICE
[2018-11-03] MEDS: IPRATROPIUM/ALBUTEROL SULFATE 3 ML AMPUL.NEB (DUONEB) INH SCH ×2 (15:00→20:29)
[2018-11-03] MEDS: cefTRIAXone 1 GM IVPB PREMIX 50 ML IV SCH (17:24)
[2018-11-03] MEDS ORDERED: WARFARIN SODIUM 5 MG TABLET PO SCH (18:00)
--- NOTE | 2018-11-03 18:29 | NUR ---
Closing notes, pt has been stable, no c/o pain. blood sugar checked. humalog insulin given as coverage. bp wnl. no fever. pt ambulates to the bathroom. will endorse to night nurse.
--- NOTE | 2018-11-03 19:17 | NUR ---
OPENING NOTES RECEIVED BEDSIDE REPORT WITH PATIENT RESTING IN BED. AAOX4 AND ABLE TO VERBALIZE HIS NEEDS. CRACKLES HEARD THROUGH LUNGS. ORIENTED THE PATIENT TO THE ROOM AND USE OF THE CALL LIGHT. CANE IS AT BEDSIDE. BED LOCKED AND LOW. BED ALARM IS ACTIVE. CALL LIGHT PLACED WITHIN REACH.
--- NOTE | 2018-11-03 21:15 | NUR ---
INCONTINENCE CARE/LINEN CHANGE PROVIDED Incontinence care was provided. Patient requested assistance with his incontinence brief. Bed linen and gown was changed. Tolerated well. Chocolate pudding was given as requested. Safety and fall precautions in place. Call light with patient. Bed alarm on. Primary nurse, JARROD Warner was also made aware.
[2018-11-03] MEDS: AZITHROMYCIN 500 MG in NS 250 ML IV SCH (21:20)
--- NOTE | 2018-11-03 22:02 | NUR ---
BLOOD SUGAR, 212. HUMALOG INSULIN 4 UNITS GIVEN FOR COVERAGE. ZITHROMAX INFUSING WITH NO ADVERSE EFFECTS.
--- NOTE | 2018-11-04 00:40 | NUR ---
PATIENT RESTING IN BED WITH NO OBSERVED PAIN OR RESPIRATORY DISTRESS.
--- NOTE | 2018-11-04 02:32 | NUR ---
PATIENT RESTING IN BED WITH NO RESPIRATORY DISTRESS. NO FACIAL GRIMACING OF PAIN NOTED. WILL CONT TO MONITOR ON ROUNDS.
--- NOTE | 2018-11-04 04:08 | NUR ---
NO CHANGE IN CONDITION.
[2018-11-04] MEDS: LEVOTHYROXINE SODIUM 0.1 MG TABLET PO SCH (06:30)
[2018-11-04] MEDS: PANTOPRAZOLE SODIUM 40 MG TAB PO SCH (06:30)
[2018-11-04] MEDS: INSULIN LISPRO SLIDING SCALE 100 UNITS/ML VIAL (humaLOG) SUBCUT PRN ×4 (06:35→20:37)
--- NOTE | 2018-11-04 06:59 | NUR ---
CLOSING NOTES PATIENT IN BED RESTING. ALL NEEDS HAVE BEEN MET. SAFETY PRECAUTIONS IN PLACE.
[2018-11-04] MEDS: IPRATROPIUM/ALBUTEROL SULFATE 3 ML AMPUL.NEB (DUONEB) INH SCH ×3 (07:15→19:57)
[2018-11-04 07:30] VITALS: BP_SYST 148
--- NOTE | 2018-11-04 07:53 | NUR ---
PAGED I PAGED [phone] @ 0453 I SPOKE WITH SCARLETT BRAKE REPAIR SUPERVISOR DR. RICKS IS ASPHALT PAVING FOREMAN THIS MORNING DR. RICKS CALLED BACK @ 1048
--- NOTE | 2018-11-04 07:55 | NUR ---
Opening notes, Received pt in bed, pt is aaox4, no c/o pain, no sob, no resp distress. Safety precaution in place. call light in reach. bed alarm on. Encouraged pt to call for assist to bathroom and any concerns. will cont to monitor.
[2018-11-04] MEDS: LISINOPRIL 20 MG TABLET PO SCH (08:11)
[2018-11-04] MEDS: FUROSEMIDE 40 MG TABLET PO SCH (08:12)
[2018-11-04] MEDS: ATORVASTATIN 10 MG TABLET PO SCH (08:12)
[2018-11-04] MEDS: CARVEDILOL 12.5 MG TABLET (COREG) PO SCH ×2 (08:12→18:14)
[2018-11-04] MEDS ORDERED: VANCOMYCIN HCL 1 GM/NS PREMIX 250 ML IV SCH (08:15)
[2018-11-04] MEDS: VANCOMYCIN HCL 1 GM/NS PREMIX 250 ML IV SCH ×2 (09:08→21:54)
--- NOTE | 2018-11-04 10:05 | NUR ---
pt in bed, resting comfortably, no c/o of pain. no sob. will cont to monitor.
[2018-11-04 11:45] VITALS: BP_SYST 146
--- NOTE | 2018-11-04 11:54 | NUR ---
pt sitting on the chair at this time, waiting for lunch tray, no c/o pain. no sob. downgraded by md to medsurg. call light in reach. will cont to monitor.
--- NOTE | 2018-11-04 13:56 | NUR ---
pt sleeping comfortably in bed, pt's spouse at bedside. updated with pt's status and plan of care. encouraged to call for assist and any concerns.
--- NOTE | 2018-11-04 14:43 | NUR ---
Transfer of care: Patient endorsed to JARROD Sharp. pt is on stable condition.
--- NOTE | 2018-11-04 14:47 | NUR ---
ASSUMPTION OF CARE: RECEIVED PT AWAKE, ORIENTEDX1, NO S/S OF DISTRESS, CALL LIGHT WITHIN REACH, ROOM CLOSE TO NURSES STATION, ENDORSED BY NURSE YONATHAN GARAY, WILL CON'T WITH POC.
[2018-11-04 16:00] VITALS: BP_SYST 128
--- NOTE | 2018-11-04 17:00 | NUR ---
GLUCOSE MONITORING: BLOOD SUGAR FYBZF=233, 2 UNITS HUMALOG LISPRO INSULIN COVERAGE GIVE, TOLERATED WELL, WILL CON'T WITH PLAN OF CARE.
[2018-11-04] MEDS: cefTRIAXone 1 GM IVPB PREMIX 50 ML IV SCH (17:30)
[2018-11-04] MEDS ORDERED: WARFARIN SODIUM 3 MG TABLET PO ONE (18:00)
--- NOTE | 2018-11-04 19:00 | NUR ---
END OF SHIFT: PT REMAINS STABLE, CALL LIGHT WITHIN REACH, WILL ENDORSE TO COPYHOLDER NURSE.
--- NOTE | 2018-11-04 19:39 | NUR ---
Initial note: Received report from dayshift RN. Patient is awake in bed, no distress. Alert and oriented x4. Tolerating 2L NC, even and unlabored breathing on room air. IV site to right forearm is patent, benign. Call light with patient. Safety, fall precautions in place. Will continue with plan of care.
[2018-11-04 20:00] VITALS: BP_SYST 122
[2018-11-04] MEDS: AZITHROMYCIN 500 MG in NS 250 ML IV SCH (20:14)
--- NOTE | 2018-11-04 20:38 | NUR ---
Blood sugar: Patient's blood sugar is 211. Administered 4 units Humalog insulin subcutaneously per sliding scale. No adverse reactions noted. Call light with patient. Will continue monitoring.
--- NOTE | 2018-11-04 23:50 | NUR ---
Rounds: Patient is resting in bed, does not show any acute distress. Respirations are even and unlabored on 2L NC. Call light with patient. Will continue to monitor.
[2018-11-05 00:39] VITALS: BP_SYST 114
--- NOTE | 2018-11-05 01:41 | NUR ---
Rounds: Patient is sleeping comfortably in bed. No acute distress. Tolerating 2L NC. Even and unlabored breathing. Call light with patient. Will continue monitoring.
--- NOTE | 2018-11-05 04:23 | NUR ---
Rounds: Patient is resting in bed, no distress. Even and unlabored breathing, tolerating 2L NC. Call light is with patient. Will continue monitoring.
[2018-11-05] MEDS: LEVOTHYROXINE SODIUM 0.1 MG TABLET PO SCH (06:39)
[2018-11-05] MEDS: PANTOPRAZOLE SODIUM 40 MG TAB PO SCH (06:39)
[2018-11-05] MEDS: INSULIN LISPRO SLIDING SCALE 100 UNITS/ML VIAL (humaLOG) SUBCUT PRN ×2 (06:45→11:07)
--- NOTE | 2018-11-05 07:06 | NUR ---
Closing note: Patient is resting in bed awake. No acute distress. Tolerating room air. IV site to right forearm is patent, benign, saline locked. Blood sugar this AM is 177. All needs met. Safety, fall precautions observed. Hourly rounding done throughout shift. Will endorse care to dayshift RN.
[2018-11-05] MEDS: IPRATROPIUM/ALBUTEROL SULFATE 3 ML AMPUL.NEB (DUONEB) INH SCH (07:07)
[2018-11-05] MEDS: VANCOMYCIN HCL 1 GM/NS PREMIX 250 ML IV SCH (08:08)
[2018-11-05] MEDS: FUROSEMIDE 40 MG TABLET PO SCH (08:08)
[2018-11-05] MEDS: ATORVASTATIN 10 MG TABLET PO SCH (08:08)
[2018-11-05] MEDS: LISINOPRIL 20 MG TABLET PO SCH (08:09)
[2018-11-05] MEDS: CARVEDILOL 12.5 MG TABLET (COREG) PO SCH (08:09)
--- NOTE | 2018-11-05 08:11 | NUR ---
am rounds: oriented x4. denies shortness of breath. eating breakfast on the side of the bed.
[2018-11-05 08:35] LABS: ANION GAP 6 (5-15); CALCIUM 8.5 mg/dL (8.4-11.0); CHLORIDE 101 mmol/L (98-107); CREATININE 0.93 mg/dL (0.55-1.30); GLUCOSE 177 mg/dL (70-99); POTASSIUM 3.7 mmol/L (3.5-5.1); SODIUM SERUM 138 mmol/L (136-145); UREA NITROGEN, BLOOD 16 mg/dL (8-21)
[2018-11-05 09:55] LABS: INR 2.1 (0.80-1.20); PROTHROMBIN TIME 21.2 SECS (9.5-12.5)
--- NOTE | 2018-11-05 11:00 | NUR ---
rounds: Sitting on the edge of the bed. Denies shortness of breath.
[2018-11-05 12:00] VITALS: BP_SYST 132
[2018-11-05 12:59] VITALS: BP_SYST 132
--- NOTE | 2018-11-05 13:15 | NUR ---
MD notification: ABG results reported to Dr. Ramon, ordered to dc patient home and continue all home meds.
--- NOTE | 2018-11-05 15:33 | NUR ---
D/C Patient Patient given medication reconciliation form and D/C instructions. Exit Care provided. Patient verbalized understanding. MD discussed with patient the results and treatment provided. Ambulatory with steady gait for discharge to home. Patient in stable condition, ID band removed. IV catheter removed, intact and dressing applied, no active bleeding. Rx of AUGMENTIN given. Patient educated on follow up with PCP . All belongings sent with patient.
[2018-11-05] MEDS ORDERED: WARFARIN SODIUM 4 MG TABLET PO ONE (18:00)
--- NOTE | 2018-11-10 14:23 | NUR ---
Discharge Follow Up Phone Call DIESEL MECHANIC APPRENTICE phoned patient, , and spoke with patient's , Micaela. Micaela stated that patient was doing okay but recovering slowly. He filled his prescription and is taking the Augmentin, but did not get the prescription for the Albuterol. They eventually got it from the health provider. Patient had a follow up appointment with the nurse practitioner on 11/09/18. Micaela stated that they were contacted by [facility] but had not heard from the nurse yet. (There was no home health order on the discharge order.) DIESEL MECHANIC APPRENTICE phoned [facility], , and spoke with Theresa. She stated they only recently received the auth and the nurse was to call patient yesterday or today. She will message nurse to be sure to call by end of day today. DIESEL MECHANIC APPRENTICE phoned Micaela back and relayed the information. No other questions or concerns.
== END 2018-11-05 15:25 | disposition home or self-care (01) | DRG 193 ==
LOC: SED 17:27 → STU 19:39 → SMU 11-04 11:44
PROVIDERS: ADMIT Internal Medicine; ATTEND Internal Medicine
DX: J18.9 Pneumonia, unspecified organism (principal); J96.01 Acute respiratory failure with hypoxia; J44.0 Chronic obstructive pulmonary disease with (acute) lower respiratory infection; J44.1 Chronic obstructive pulmonary disease with (acute) exacerbation; R78.81 Bacteremia; R65.10 Systemic inflammatory response syndrome (SIRS) of non-infectious origin without acute organ dysfunction; D64.9 Anemia, unspecified; J84.10 Pulmonary fibrosis, unspecified; E78.00 Pure hypercholesterolemia, unspecified; E03.9 Hypothyroidism, unspecified; E11.9 Type 2 diabetes mellitus without complications; I10 Essential (primary) hypertension; I25.10 Atherosclerotic heart disease of native coronary artery without angina pectoris; I48.2 Chronic atrial fibrillation; J61 Pneumoconiosis due to asbestos and other mineral fibers; Z77.090 Contact with and (suspected) exposure to asbestos; Z83.3 Family history of diabetes mellitus; Z86.73 Personal history of transient ischemic attack (TIA), and cerebral infarction without residual deficits; Z79.899 Other long term (current) drug therapy; Z85.9 Personal history of malignant neoplasm, unspecified; Z87.891 Personal history of nicotine dependence
CPT/HCPCS: 36415; 36600; 71045; 71250-TC; 80048; 80053; 81000-TC; 82803-TC; 82962; 83605; 84484; 85025; 85379; 85610-TC; 85730-TC; 87040-TC; 87086; 93005; 93306; 94640; 94760; 96365; 99291; G0378; J0456; J0696; J3370; J7050; J7620

== ENCOUNTER 2020-02-06 01:20 | Emergency (ER) | payer OTHER ==
[2020-02-06 01:20] VITALS: BP_SYST 0
[~2020-02-06 01:20] MED LIST changes: -ASPI-1153 PO; +EPINEPHrine JECT 0.1 MG/ML SYR ONE; -FINA5TAB11 PO; +FURO-149 PO; -LEVO500T20 PO; -PRED10TA PO; -PRED20TA PO; -SPIR25TA6 PO
--- NOTE | 2020-02-06 01:20 | NUR ---
Pt to bed 1. Pt Arrived at 0118 with CPR in progress. Pt BIB AMBULANCE FROM HOME. DR. CHIANG ER physician at bedside. In full arrest, CPR in progress. BAG-MASK ventilation being assisted by paramedics. I/O started in field in left anterior tibial. [2 ROUNDS EPI given in field. NO shocks performed in field. Naman abdi called. R.T. AT BEDSIDE. Please see naman abdi record.
--- NOTE | 2020-02-06 01:45 | NUR ---
ER DR. CHAING CONTACTED SPOUSE TO INFORM OF PT
--- NOTE | 2020-02-06 02:00 | NUR ---
[facility] procurement agency contacted by JARROD GAMBLE. PRETTY SHERIN Case # [id number].
--- NOTE | 2020-02-06 02:02 | NUR ---
[facility] Department of Mat Man called contacted by ANISHA JacksonRN N. Spoke with KIKE.Case IS DECLINED. Family notified by ER DR. CHIANG.
--- NOTE | 2020-02-06 02:05 | NUR ---
DR. HARTLEY' EXCHANGE WAS NOTIFIED OF PT , PRETTY VANG.
--- NOTE | 2020-02-06 02:14 | NUR ---
[facility] RETURNED CALL TO REPORT THAT PT IS NOT ELIGIBLE FOR DONATION DUE TO MEDICAL HX. REFERENCE # [id number]
--- NOTE | 2020-02-06 02:29 | NUR ---
TWO [employer] BINDER RELEASED TO SECURITY
--- NOTE | 2020-02-06 02:32 | NUR ---
PT PLACED IN BODY HOLD. RECORD OF AND CODE BLUE DOCUMENTS GIVEN TO SYNTHETIC FILAMENT EXTRUDERTU. Addendum: 02/06/20 at 0319 by ANNIA PT PLACED IN BODY HOLD. RECORD OF GIVEN TO SYNTHETIC FILAMENT EXTRUDERTU.
--- NOTE | 2020-02-06 10:11 | NUR ---
Occup Therapist Note: BOX WORKER phoned spouse Micaela to offer emotional support and resources. Micaela is calling mortuaries today to arrange for cremation services; Micaela will phone back when arranged. BOX WORKER also mailed family bereavement resources. SS will remain available.
--- NOTE | 2020-02-07 11:11 | NUR ---
Mortuary arrangements Phoned patient's , Micaela [phone]. She stated she is receiving support from family and hospice. She was at [facility] signing papers. Patient's body to be transported to the mortuary today. Notified Progress Developer Janet. Addendum: 02/07/20 at 1131 by Micki Carvalho LCSW Called [facility], . They have the release and will fax it to me. They are aware that we need a roll picker as soon as possible.
== END 2020-02-06 01:36 | disposition expired ==
LOC: SED 01:20
DX: I46.9 Cardiac arrest, cause unspecified (principal); I10 Essential (primary) hypertension; E11.9 Type 2 diabetes mellitus without complications; J45.909 Unspecified asthma, uncomplicated; E78.00 Pure hypercholesterolemia, unspecified; Z79.899 Other long term (current) drug therapy; Z79.84 Long term (current) use of oral hypoglycemic drugs
CPT/HCPCS: 92950; 99285; J0171